=== PATIENT | male | born 1980 | race Caucasian/White ===

== ENCOUNTER → 2021-10-25 09:52 | Outpatient (BNVA) | payer OTHER, SELFPAY | PROVIDERS: Visit Provider Physician Assistant | DX: S63.502A Unspecified sprain of left wrist, initial encounter (principal); W17.89XA Other fall from one level to another, initial encounter | CPT/HCPCS: 73200; 99203 ==

== ENCOUNTER → 2021-11-01 15:08 | Outpatient (BNVA) | payer OTHER, SELFPAY | PROVIDERS: Visit Provider Physician Assistant | DX: S69.92XD Unspecified injury of left wrist, hand and finger(s), subsequent encounter (principal); X58.XXXD Exposure to other specified factors, subsequent encounter | CPT/HCPCS: 99213 ==

== ENCOUNTER 2021-11-07 19:13 | Outpatient (REF) | payer OTHER, SELFPAY ==
--- NOTE | ~2021-11-07 | MR_ITS ---
EXAMINATION: MRI WRIST WITHOUT CONTRAST, LEFT CLINICAL INFORMATION: Posterior left wrist pain following a fall on 10/22/2021. COMPARISON: Left wrist CT dated 10/25/2021. TECHNIQUE: Multisequence MR imaging of the left wrist was obtained without contrast on a high-field strength scanner. FINDINGS: TRIANGULAR FIBROCARTILAGE: There is increased T2 signal at the ulnar styloid attachment of the triangular fibrocartilage complex measuring up to 0.4 cm in ML dimension, likely representing partial tearing. No radial-sided tear. INTRINSIC LIGAMENTS: Intact. TENDONS/MEDIAN NERVE: Intact. ARTICULAR CARTILAGE/BONE: Intact. JOINT FLUID/SOFT TISSUES: Small ganglion cyst dorsal to the scapholunate joint measuring up to 0.6 cm. MR/MR wrist LT wo con IMPRESSION: 1. Probable partial tearing through the ulnar styloid attachment of the triangular fibrocartilage complex measuring 0.4 cm in ML dimension. No full-thickness tear or distal radial ulnar joint effusion. 2. Small ganglion cyst dorsal to the scapholunate articulation measuring up to 0.6 cm.
== END 2021-11-07 19:14 | disposition home or self-care (01) ==
LOC: HO.MRI 19:13
PROVIDERS: Visit Provider Internal Medicine
DX: M25.532 Pain in left wrist (principal)
CPT/HCPCS: 73221